=== PATIENT | male | born 1950 ===

== ENCOUNTER 2020-11-01 11:30 | Inpatient (IN) | payer OTHER ==
[~2020-11-01] VITALS: Ht 170.2 cm; Wt 77.1 kg
== END 2020-11-11 16:58 | disposition home or self-care (01) | DRG 334 ==
LOC: O/R 11-08 09:58 → SURH 11-08 09:58
PROVIDERS: ADMIT Colon & Rectal Surgery; ATTEND Colon & Rectal Surgery
PROC: 0DTP0ZZ Resection of Rectum, Open Approach (ICD-10-PCS; principal; 2020-11-08 10:15)
DX: K57.32 Diverticulitis of large intestine without perforation or abscess without bleeding (principal); N40.0 Benign prostatic hyperplasia without lower urinary tract symptoms; I10 Essential (primary) hypertension; K66.0 Peritoneal adhesions (postprocedural) (postinfection)